=== PATIENT | male | born 1970 | race Two or more races ===

== ENCOUNTER 2021-11-10 08:08 | Outpatient (REF) | payer BC, SELFPAY ==
[2021-11-10 08:17] LABS: MANUAL DIFF FLAG NO
[2021-11-10 08:59] LABS: Basophils Percent Auto 1.1 % (0-2); Eosinophils Absolute Auto 0.1 X10*3/uL (0.0-0.4); Eosinophils Percent Auto 3.3 % (0-4); Hematocrit 44.2 % (42.0-52.0); Hemoglobin 15.3 g/dl (14.0-18.0); Imm Gran Abs Auto 0.01 X10*3/uL (0.00-0.03); Imm Gran Pct Auto 0.3 % (0.0-0.4); Lymphocytes Percent Auto 28.4 % (20-40); Mean Corpuscular HGB Conc 34.6 g/dl (31.0-36.0); Mean Corpuscular Hemoglobin 30.4 pg (27.0-33.0); Mean Corpuscular Volume 87.9 fL (80.0-98.0); Mean Platelet Volume 9.4 fL (9.4-12.4); Monocytes Absolute Auto 0.4 X10*3/uL (0.1-1.2); Monocytes Percent Auto 10.7 % (2-11); Neutrophils Absolute Auto 2.1 x10*3/uL (2.0-8.3); Neutrophils Percent Auto 56.2 % (45-73); Platelet Count 204 X10*3/uL (160-400); Red Blood Count 5.03 X10*6/uL (4.60-5.80); Red Cell Distribution Width 11.8 % (11.0-16.0); White Blood Count 3.7 X10*3/uL (4.8-10.8)
[2021-11-10 09:30] LABS: Alanine Aminotransferase 47 U/L (0-40); Albumin Level 4.5 g/dL (3.5-5.0); Alkaline Phosphatase 84 U/L (39-117); Anion Gap 15 (12-20); Aspartate Amino Transferase 28 U/L (5-37); Bilirubin Total 0.4 mg/dL (0.0-1.0); Blood Urea Nitrogen 22 mg/dL (9-16); Carbon Dioxide 24 mmol/L (22-29); Chloride 107 mmol/L (96-108); Cholesterol 196 mg/dL; Estimated Glomerular Filt Rate > 60; Glucose Fasting 101 mg/dL (60-99); HDL Cholesterol 38 mg/dL; LDL Cholesterol Calculated 136 mg/dl; Potassium 4.3 mmol/L (3.3-5.1); Sodium 142 mmol/L (135-145); Total Protein 7.6 g/dL (6.5-8.0); Triglycerides 114 mg/dL
[2021-11-10 09:52] LABS: PSA,Total (Free>4and<10) 0.44 ng/mL (0.00-4.00); Thyroid Stimulating Hormone 3.07 uIU/mL (0.32-4.0); Vitamin D 25-OH Total 23.5 ng/mL (>30)
== END 2021-11-10 08:09 | disposition home or self-care (01) ==
LOC: HO.LAB 08:08
PROVIDERS: PCP Internal Medicine; Visit Provider Internal Medicine
DX: Z00.00 Encounter for general adult medical examination without abnormal findings (principal); Z12.5 Encounter for screening for malignant neoplasm of prostate; E78.5 Hyperlipidemia, unspecified; E66.9 Obesity, unspecified; E55.9 Vitamin D deficiency, unspecified
CPT/HCPCS: 36415; 80053; 80061; 82306; 84153; 84443; 85025

== ENCOUNTER 2022-02-02 07:37 | Outpatient (REF) | payer BC, SELFPAY ==
[2022-02-02 07:50] LABS: MANUAL DIFF FLAG NO
[2022-02-02 08:13] LABS: Basophils Percent Auto 0.8 % (0-2); Eosinophils Absolute Auto 0.1 X10*3/uL (0.0-0.4); Hematocrit 45.2 % (42.0-52.0); Hemoglobin 15.3 g/dl (14.0-18.0); Imm Gran Abs Auto 0.01 X10*3/uL (0.00-0.03); Imm Gran Pct Auto 0.3 % (0.0-0.4); Lymphocytes Percent Auto 25.1 % (20-40); Mean Corpuscular HGB Conc 33.8 g/dl (31.0-36.0); Mean Corpuscular Hemoglobin 30.5 pg (27.0-33.0); Mean Platelet Volume 9.5 fL (9.4-12.4); Monocytes Absolute Auto 0.3 X10*3/uL (0.1-1.2); Neutrophils Absolute Auto 2.5 x10*3/uL (2.0-8.3); Neutrophils Percent Auto 63.8 % (45-73); Platelet Count 187 X10*3/uL (160-400); Red Blood Count 5.02 X10*6/uL (4.60-5.80); Red Cell Distribution Width 11.7 % (11.0-16.0)
[2022-02-02 08:57] LABS: Alanine Aminotransferase 40 U/L (0-40); Albumin Level 4.4 g/dL (3.5-5.0); Alkaline Phosphatase 80 U/L (39-117); Aspartate Amino Transferase 22 U/L (5-37); Bilirubin Direct 0.2 mg/dL (0.0-0.5); Bilirubin Total 0.8 mg/dL (0.0-1.0); Total Protein 7.3 g/dL (6.5-8.0)
== END 2022-02-02 07:38 | disposition home or self-care (01) ==
LOC: HO.LAB 07:37
PROVIDERS: PCP Internal Medicine; Visit Provider Internal Medicine
DX: D72.819 Decreased white blood cell count, unspecified (principal); R74.01 Elevation of levels of liver transaminase levels
CPT/HCPCS: 36415; 80076; 85025

== ENCOUNTER 2022-12-08 08:27 | Outpatient (AMB) | payer BC, SELFPAY ==
[2022-12-08 08:32] VITALS: BP 120/70; PULSE 66; O2SAT 97; BMI 29.9
--- NOTE | 2022-12-08 08:32 | A.OFFPC_ITS ---
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 Accompanied by: Spouse Allergies oxycodone [From Percocet] Adverse Reaction (Intermediate, Verified 12/08/22 08:44) Itching Medication List - Last Reconciled 12/08/22 by Jacinda Cortes MD cholecalciferol (vitamin D3) 25 mcg PO DAILY 90 days Tobacco use date assessed: 12/08/22 Dental Screening Dental Screen Date: 12/08/22 Did you have a dental visit in the last 12 months?: Yes Did you have a dental problem in the last 6 months where you did not have access to dental care?: No Was dental information given to patient?: Patient has dentist HPI HPI Comments History of Present Illness Details This is a 52-year-old male with mild major depression that comes for his physical exam. Depression has been in remission. Colonoscopy still pending. No chest pain or shortness of breath. Complains of insomnia and tried trazodone with no success. I will prescribe amitriptyline. He also has hemorrhoids and constipation. Has occasional blood in the stools. He is accompanied by female partner. [facility] Surgical History History of hernia surgery Family History Father No problems noted. Mother No problems noted. Social History Housing: House Alcohol intake: never Patient Tobacco Use Status: Never used Tobacco e-Cigarette/Vaping Use: Never Used Second Hand Smoke Exposure: No service: No Current occupational status: employed Current occupational exposures/hazards: No Cognitive needs: No Hearing needs: No Vision needs: Yes Questionnaire Thrive Questionnaire Date Thrive assessed: 11/10/21 MOLLY-7 AMB Questionnaire MOLLY-7 Date MOLLY - 7 assessed: 11/10/21 Source: Developed by Drs. Jose Cai, Gayle B.W. Elier Cosme and colleagues, with an educational osmani from [employer]. Review of Systems Const All systems reviewed & are unremarkable except as noted in HPI and below Eyes Reports no additional complaints, Denies change in vision and Denies other visual disturbances Card Denies chest pain at rest, Denies chest pain with activity, Denies edema, Denies irregular heart rhythm, Denies claudication, Denies dyspnea, Denies dyspnea on exertion, Denies orthopnea, Denies paroxysmal nocturnal dyspnea and Denies slow heart rate Resp Denies cough, Denies dyspnea and Denies dyspnea on exertion GI Denies abdominal pain, Denies change in bowel habits, Denies excessive flatus, Denies nausea and Denies vomiting Denies urinary hesitancy, Denies urinary incontinence and Denies urinary urgency Musc Denies abnormal gait, Denies atrophy, Denies deformity and Denies limited range of motion Skin/Breast Denies bleeding lesions, Denies changing lesions and Denies rash Neuro Denies abnormal gait and Denies lack of coordination Physical exam (Primary Care) Vital Signs: Last Vital Signs Pulse 66 12/08/22 08:32 BP 120/70 12/08/22 08:32 Pulse Ox 97 12/08/22 08:32 Oxygen Delivery Method Room Air 12/08/22 08:32 BMI result Body Mass Index 29.9 Tobacco/Smoking Status: Tobacco use Status Tobacco use date assessed 12/08/22 12/08/22 08:35 Patient Tobacco Use Status Never used Tobacco 12/08/22 08:35 e-Cigarette/Vaping Use Never Used 12/08/22 08:35 Thrive Assessment: Date of Thrive Assessment Date Thrive assessed 11/10/21 12/08/22 08:35 Const Orientation/consciousness: patient oriented x3 HENMT Head: Yes normal to inspection, Yes normocephalic and Yes atraumatic Ears: external ears normal Eyes General: appearance normal, both eyes and all related structures Eyelids: Yes eyelids normal Conjunctivae: conjunctivae normal Neck Neck: Yes normal visual inspection and Yes supple Resp Effort & Inspection: normal respiratory effort Auscultation: clear to auscultation bilaterally Cardio Jugular venous distension: no JVD Rate: regular rate Rhythm: regular rhythm Heart sounds: S1 normal heart sound present and S2 normal heart sound present GI Inspection: Yes normal to inspection Palpation (GI): Soft to palpation and nontender Auscultation: normal bowel sounds Skin General skin exam: no rashes or lesions noted Neuro General: patient oriented x3 and no focal motor deficits Extrem General: Yes full ROM Psych Appearance: grossly normal Office Procedures Flu Questionnaire Does the patient have a severe egg allergy?: No Immunizations flu vacc [id number] 6mos up(PF) 60 mcg(15 mcgx4)/0.5 mL IM syringe Performing Provider: Jacinda Cortes MD [facility] Documented (not given) by: SIRI Draper on 12/08/22 08:36 Reason Not Given: Patient Refused Assessment and Plan Assessment & Plan (1) Physical exam: Code(s): Z00.00 - Encounter for general adult medical examination without abnormal findings Plan: Repeat in a year (2) Mild major depression: Code(s): F32.0 - Major depressive disorder, single episode, mild Plan: In remission Orders: Orders Influenza [id number] Immunization Today Z23 - Encounter for immunization Lipid Panel Today E78.5 - Hyperlipidemia, unspecified, Z00.00 - Encounter for general adult medical examination without abnormal findings Complete Blood Count Auto Diff Today D72.819 - Decreased white blood cell count, unspecified Comprehensive [place]. Panel Fast Today Z00.00 - Encounter for general adult medical examination without abnormal findings Vitamin D 25-OH Total Today E55.9 - Vitamin D deficiency, unspecified Medications: New amitriptyline 10 mg PO BEDTIME 90 days 90 tabs 1RF docusate sodium (Colace) 100 mg PO DAILY 90 days PRN 90 caps 1RF constipation Coding Level of Care Code Est Pt Prev Care 40-64y(17050) Diagnoses Physical exam Z00.00 Mild major depression F32.0 Time Spent (min) 32
== END 2022-12-08 08:56 | disposition home or self-care (01) ==
LOC: HO.HMGH 08:27
PROVIDERS: PCP Internal Medicine; Visit Provider Internal Medicine
DX: Z00.00 Encounter for general adult medical examination without abnormal findings (principal); F32.0 Major depressive disorder, single episode, mild
CPT/HCPCS: 99396

== ENCOUNTER 2022-12-24 08:38 | Outpatient (REF) | payer BC, SELFPAY ==
[2022-12-24 08:49] LABS: MANUAL DIFF FLAG NO
[2022-12-24 09:06] LABS: Basophils Percent Auto 0.7 % (0-2); Eosinophils Absolute Auto 0.1 X10*3/uL (0.0-0.4); Eosinophils Percent Auto 3.1 % (0-4); Hematocrit 43.4 % (42.0-52.0); Imm Gran Abs Auto 0.01 X10*3/uL (0.00-0.03); Imm Gran Pct Auto 0.3 % (0.0-0.4); Lymphocytes Absolute Auto 0.8 X10*3/uL (1.2-4.9); Lymphocytes Percent Auto 26.9 % (20-40); Mean Corpuscular HGB Conc 34.6 g/dl (31.0-36.0); Mean Corpuscular Hemoglobin 31.1 pg (27.0-33.0); Mean Platelet Volume 9.7 fL (9.4-12.4); Monocytes Absolute Auto 0.3 X10*3/uL (0.1-1.2); Monocytes Percent Auto 8.7 % (2-11); Neutrophils Absolute Auto 1.7 x10*3/uL (2.0-8.3); Neutrophils Percent Auto 60.3 % (45-73); Platelet Count 191 X10*3/uL (160-400); Red Blood Count 4.82 X10*6/uL (4.60-5.80); Red Cell Distribution Width 11.9 % (11.0-16.0); White Blood Count 2.9 X10*3/uL (4.8-10.8)
[2022-12-24 09:51] LABS: Alanine Aminotransferase 44 U/L (0-40); Albumin Level 4.5 g/dL (3.5-5.0); Alkaline Phosphatase 73 U/L (39-117); Anion Gap 15 (12-20); Aspartate Amino Transferase 26 U/L (5-37); Bilirubin Total 0.8 mg/dL (0.0-1.0); Blood Urea Nitrogen 18 mg/dL (9-16); Calcium 9.6 mg/dL (8.4-10.2); Carbon Dioxide 23 mmol/L (22-29); Chloride 105 mmol/L (96-108); Cholesterol 234 mg/dL (<200); Estimated Glomerular Filt Rate > 60; Glucose Fasting 88 mg/dL (60-99); HDL Cholesterol 42 mg/dL (>40); LDL Cholesterol Calculated 175 mg/dL (<100); Potassium 4.1 mmol/L (3.3-5.1); Sodium 139 mmol/L (135-145); Total Protein 7.7 g/dL (6.5-8.0); Triglycerides 88 mg/dL (<150)
[2022-12-24 10:01] LABS: Vitamin D 25-OH Total 28.3 ng/mL (>30)
== END 2022-12-24 08:39 | disposition home or self-care (01) ==
LOC: HO.LAB 08:38
PROVIDERS: PCP Internal Medicine; Visit Provider Internal Medicine
DX: Z00.00 Encounter for general adult medical examination without abnormal findings (principal); D72.819 Decreased white blood cell count, unspecified; E78.5 Hyperlipidemia, unspecified; E55.9 Vitamin D deficiency, unspecified
CPT/HCPCS: 36415; 80053; 80061; 82306; 85025

== ENCOUNTER 2023-01-20 10:19 | Outpatient (AMB) | payer BC, SELFPAY ==
[2023-01-20 10:25] VITALS: BP 124/75; PULSE 62; BMI 28.3
--- NOTE | 2023-01-20 10:25 | MHC.OFFVIS ---
Intake Vital Signs 01/20/23 10:25 Height 5 ft 6 in Weight 175 lb 7.807 oz BMI 28.3 BP 124/75 Blood Pressure Location Lt brachial Position Sitting Pulse 62 Pulse Source Pulse Oximeter Intake Visit Reasons: rectal bleeding Intake Note: Pt presents to the office today for rectal bleeding. Pt states he sees bright red blood when you goes to the bathroom. Pt states he only goes to the bathroom about once a week. Pt denies N/V/D or stomach upsets. Allergies oxycodone [From Percocet] Adverse Reaction (Intermediate, Verified 01/20/23 10:27) Itching HPI rectal bleeding HPI Details 52 year old? male with past medical history of leukopenia, insomnia, depression is here today for initial consultation.? Patient was booked for open access colonoscopy and will have the procedure in February, however ask to be seen due to severe constipation and occasional blood in his stools. Patient reports that sometimes he will not have a bowel movement for 1 week. Patient states that he changed his diet is trying to lose weight is doing he told diet and since then he became even more constipated.? ? Denies any personal or family history of gastrointestinal disease, colon polyps, or cancer.? Denies history of difficulty with sedation or anesthesia in the past.? Negative for history of sleep apnea.? Denies any history of cardiac, renal, pulmonary, or hepatic disease.?? No history of infectious? diseases like hepatitis A, B, C, HIV or tuberculosis.? Patient is not on any anticoagulation therapy. [facility] Surgical History History of hernia surgery Family History Father No problems noted. Mother No problems noted. Social History Housing: House Alcohol intake: never Patient Tobacco Use Status: Never used Tobacco e-Cigarette/Vaping Use: Never Used Second Hand Smoke Exposure: No service: No Current occupational status: employed Current occupational exposures/hazards: No Cognitive needs: No Hearing needs: No Vision needs: Yes Review of Systems Const Denies weight gain and Denies weight loss ENT Reports no additional complaints, Denies dysphagia and Denies odynophagia Card Reports no additional complaints Resp Reports no additional complaints GI Denies abdominal pain, Denies belching, Denies melena, Reports bloating, Reports hematochezia, Denies change in bowel habits, Reports constipation, Denies dysphagia, Denies excessive flatus, Denies dyspepsia, Denies heartburn, Denies diarrhea, Denies loose stools, Denies nausea, Denies odynophagia and Denies vomiting Reports no additional complaints Musc Reports no additional complaints Neuro Reports no additional complaints Psych Reports no additional complaints Endo Reports no additional complaints Physical Exam Vital Signs: Last Vital Signs Pulse 62 01/20/23 10:25 BP 124/75 01/20/23 10:25 BMI result Body Mass Index 28.3 Const General: healthy appearing, no acute distress and well developed Nutritional Appearance: well nourished Orientation/consciousness: patient oriented x3 HEENT Head: Yes normal to inspection, Yes normocephalic and Yes atraumatic Face and sinus: Yes normal facial exam Mouth: Normal oral and palatal mucosa present Throat: Yes posterior oropharynx normal, Yes tonsils normal and Yes uvula midline Eyes General: appearance normal, both eyes and all related structures Neck Neck: Yes normal visual inspection, Yes full ROM and Yes trachea midline Thyroid: Thyroid normal Resp Effort & Inspection: normal respiratory effort, able to speak in complete sentences, no tracheal deviation and symmetric chest movement Auscultation: clear to auscultation bilaterally Cardio Rate: regular rate GI Inspection: Yes normal to inspection, No distended and Yes obesity Palpation (GI): Soft to palpation, not firm, nontender and No hepatosplenomegaly present Auscultation: normal bowel sounds General: Yes no CVA tenderness Back/Spine/Pelvis Back: no CVA tenderness Skin General skin exam: elasticity normal, turgor normal and dry skin Neuro General: patient oriented x3 Psych Appearance: grossly normal Mental Status: mental status grossly normal Affect: normal affect Assessment & Plan Assessment & Plan (1) Constipation: Code(s): K59.00 - Constipation, unspecified Qualifiers: Constipation type: chronic idiopathic constipation Qualified Code(s): K59.04 - Chronic idiopathic constipation (2) Rectal bleed: Code(s): K62.5 - Hemorrhage of anus and rectum Plan Patient was encouraged to increase fluid intake and activity to promote better bowel motility. Eat more vegetables. Patient can start taking Dulcolax tablets every evening. Patient was encouraged to stop straining. May use Proctosol to help with hemorrhoids. Patient also was encouraged to do Sitz baths with Epsom salts. I will see patient after the procedure, sooner on as needed basis. Patient is agreeable to this plan and verbalizes understanding of instructions. He was given the opportunity to ask questions and all questions answered. Thank you for allowing me to participate in his care Medications: New bisacodyl (Dulcolax (bisacodyl)) 10 mg (2 x 5 mg) PO BEDTIME 180 tabs 4RF hydrocortisone 2.5% (Proctosol HC) 1 appl GA BID-QID PRN 30 grams 2RF hemorrhoids K64.9 - Unspecified hemorrhoids Coding Level of Care Code New Pt Level 3 (63059) Diagnoses Chronic idiopathic constipation K59.04 Constipation type: chronic idiopathic constipation Rectal bleed K62.5 Time Spent (min) 40 Comment 30 minutes spent with patient and additional 10 minutes spent reviewing his records
== END 2023-01-20 13:05 | disposition home or self-care (01) ==
PROVIDERS: PCP Internal Medicine; Visit Provider Nurse Practitioner Family
DX: K59.04 Chronic idiopathic constipation (principal); K62.5 Hemorrhage of anus and rectum
CPT/HCPCS: 99203

== ENCOUNTER → 2023-01-20 10:19 | Outpatient (BNVA) | payer BC, SELFPAY | PROVIDERS: PCP Internal Medicine; Visit Provider Nurse Practitioner Family ==

== ENCOUNTER → 2023-02-22 10:56 | Outpatient (BNV) | payer BC, SELFPAY | PROVIDERS: PCP Internal Medicine; Visit Provider Internal Medicine | DX: D72.819 Decreased white blood cell count, unspecified (principal) | CPT/HCPCS: 99204 ==

== ENCOUNTER 2023-03-08 07:10 | Day surgery (SDC) | payer BC, SELFPAY ==
[2023-03-06 13:31] VITALS: BMI 28.2
--- NOTE | 2023-03-07 12:08 | HO.ANESPROP2 ---
HPI - Anesthesia Eval Consult details Narrative: 52yo M for Colonoscopy PMFSH Active Problems Active Problems: All Active Problems (Updated 03/06/23 @ 13:28 by Sunita Hernandez RN) Chest pain (Acute) Dysphagia (Acute) Transaminasemia (Acute) Leukopenia (Chronic) Hypovitaminosis D (Acute) Insomnia (Acute) Mild major depression (Acute) Obesity (BMI 30-39.9) (Acute) Physical exam (Acute) Past Medical History Medical History Elevated cholesterol Leukopenia Depression Insomnia Dysphagia Family History Family History Father No problems noted. Mother No problems noted. Surgical History Surgical History History of hernia surgery Social History Social History (Updated 02/22/23 @ 11:12 by Patrica Simms MA) Household Members: Spouse and Children Housing: House Alcohol intake: never Patient Tobacco Use Status: Never used Tobacco e-Cigarette/Vaping Use: Never Used Second Hand Smoke Exposure: No Use of substances other than those prescribed or required for medical reasons: No Are you DNR?: No Advance Directives: No Advance Directives Information Provided: Yes service: No Current occupational status: employed Current occupational exposures/hazards: No Cognitive needs: No Hearing needs: No Vision needs: Yes Meds Allergies Allergy/AdvReac Type Severity Reaction Status Date / Time oxycodone [From Percocet] AdvReac Intermediate Itching Verified 03/08/23 07:30 Exam Height,Weight and Vital Signs: Height 5 ft 6 in Weight 79.379 kg Pertinent Lab Results Pertinent Lab Results: Laboratory Tests 12/24/22 02/22/23 02/22/23 08:48 11:42 11:42 WBC 4.0 L Hgb 15.1 Hct 43.4 Plt Count 205 Sodium 139 Potassium 4.1 Chloride 105 Carbon Dioxide 23 BUN 18 H Creatinine 0.93 Assessment and Plan Assessment Anesthesia Assessment: Chart Reviewed
[2023-03-08 07:32] VITALS: BMI 28.0
[2023-03-08 08:00] VITALS: BP 100/68; PULSE 63; RESP 16; TEMP 36.4; O2SAT 97
[2023-03-08] MEDS: Lactated Ringers 1,000 ML 100 ML IVCONT (08:03)
--- NOTE | 2023-03-08 08:26 | P.CONAN_ITS ---
[facility] Active Problems Active Problems: All Active Problems Chest pain (Acute) Dysphagia (Acute) Transaminasemia (Acute) Leukopenia (Chronic) Hypovitaminosis D (Acute) Insomnia (Acute) Mild major depression (Acute) Obesity (BMI 30-39.9) (Acute) Physical exam (Acute) Past Medical History Medical History Elevated cholesterol Leukopenia Depression Insomnia Dysphagia Family History Family History Father No problems noted. Mother No problems noted. Family history of problems with anesthesia: No Surgical History Surgical History History of hernia surgery History of Problems with Anesthesia: No Social History Social History (Updated 02/22/23 @ 11:12 by Patrica Simms MA) Household Members: Spouse and Children Housing: House Alcohol intake: never Patient Tobacco Use Status: Never used Tobacco e-Cigarette/Vaping Use: Never Used Second Hand Smoke Exposure: No Use of substances other than those prescribed or required for medical reasons: No Are you DNR?: No Advance Directives: No Advance Directives Information Provided: Yes service: No Current occupational status: employed Current occupational exposures/hazards: No Cognitive needs: No Hearing needs: No Vision needs: Yes Meds Allergies Allergy/AdvReac Type Severity Reaction Status Date / Time oxycodone [From Percocet] AdvReac Intermediate Itching Verified 03/08/23 07:30 Active Medications: Current Medications Lactated Ringer's (Lr) 1,000 mls @ 100 mls/hr IVCONT .Q10H MANDEEP Last Admin: 03/08/23 08:03 Dose: 100 mls/hr Exam Height,Weight and Vital Signs: Height 5 ft 6 in Weight 78.834 kg Last Vital Signs Temp 97.6 F 03/08/23 08:00 Pulse 63 03/08/23 08:00 Resp 16 03/08/23 08:00 BP 100/68 03/08/23 08:00 Pulse Ox 97 03/08/23 08:00 O2 Del Method Room Air 03/08/23 08:00 Airway Mallampati Class: II TM Dist: >3cm Neck ROM: Full Heart: rrr Lungs: cta Assessment and Plan Assessment Anesthesia Assessment: Anesthesia Plan Discussed and Chart Reviewed Final Anesthetic Review Family History of Problems with Anesthesia: No History of Problems with Anesthesia: No NPO: Yes ASA Class: II Final Preanesthetic Review: No Changes in Pt Med Stat, Meds/Allgs Chart Reviewed and Consent Obtained/Reviewed Patient Risk: Intermediate Procedure Risk: Intermediate Anesthetic Plan Anesthetic Plan: MAC: Disposition: Standard PACU
--- NOTE | 2023-03-08 08:31 | MHC.SHP ---
Pre-Procedural Eval Section A - 24 Hr Update-Section A only Date of Service: 03/08/23 Section B - Complete if H&P > 30 days Chief Complaint: screening Relevant Family History (Specify if Yes): No Relevant Social History: None Present Medications: see Short Stay Collaborative assessment Medical History: Significant History ( Elevated cholesterol Leukopenia Depression Insomnia Dysphagia) History of Previous Operations: Relevant previous surgery/procedure and date(s) (History of hernia surgery) Allergies: Allergies Allergy/AdvReac Type Severity Reaction Status Date / Time oxycodone [From Percocet] AdvReac Intermediate Itching Verified 03/08/23 07:30 Review of Systems Sugical H&P ROS: Negative: Constitution, Cardiovascular, Respiratory, Neurological, Psychiatric, Hem-Onc, Allergic/Immunologic, Gastrointestinal, Genitourinary, Musculoskeletal, Integumentary, Endocrine and Eyes/Ears/Nose/Throat Exam Surgical H&P Exam: Normal: HEENT, Normal: Heart, Normal: Lungs, Normal: Extremities, Normal: Abdomen, Normal: Skin and Normal: Neurological Plan Diagnosis/Plan: Unchanged I have reviewed the history and physical and performed a pertinent physical examination on my patient. No changes have occurred unless specified. Time Spent With Patient Time: Total time managing care of this patient today ____ minutes.
--- NOTE | 2023-03-08 08:58 | W.PM.OPN ---
Operative Note Operative Note Date of Service: 03/08/23 Narrative: Operative Information Procedure Description: Colonoscopy Indication: screening Anesthesia: MAC COLONOSCOPY Instrument: Olympus variable stiffness pediatric scope 190L Colonoscopy Monitoring: Vital signs and clinical assessment, continuous EKG monitoring, Pulse oximetry, Carbon Dioxide monitoring and blood pressure monitoring were done throughout the procedure. Colon withdrawal time was 14 minutes. Procedure: The patient was placed in the left lateral decubitis position and pre-procedure medications were administered. After a digital rectal examination of the ano-rectum, the video colonoscope was inserted into the rectum and advanced through the colon to the cecum/TI. The colonoscope was slowly withdrawn in a retrograde panoramic fashion and the colon mucosa was carefully examined including a retroflexed view of the rectum. Findings and interventions are described below. Procedure Difficulty: easy Findings: Terminal Ileum-normal, bx taken Cecum: erythema, and edema, micro-abscesses in cecum, bx taken, Ascending Colon: normal, random bx taken Transverse Colon -normal Descending Colon:normal Sigmoid Colon: normal Rectum: Retroflexion with small internal hemorrhoids, grade I Anorectum - normal Colon preparation: [place] Bowel Preparation Scale Right colon; 2 Transverse colon: 2 Left colon; 2 (0 = Unprepared colon segment with mucosa not seen due to solid stool that cannot be cleared. 1 = Portion of mucosa of the colon segment seen, but other areas of the colon segment not well seen due to staining, residual stool and/or opaque liquid. 2 = Minor amount of residual staining, small fragments of stool and/or opaque liquid, but mucosa of colon segment seen well. 3 = Entire mucosa of colon segment seen well with no residual staining, small fragments of stool or opaque liquid) Impression and Post Procedure Diagnosis: mild colitis internal hemorrhoids Plan: High fiber diet leaflet Avoid straining at stool, epsom salts and sitz bath, anusol supps or cream Repeat Colonoscopy in 10 years or earlier if clinically indicated check nsaid hx recheck sx, consider CTe to r/o crohns or other enteropathy Above findings were reviewed with the patient and relevant handouts were provided if indicated.
[2023-03-08 09:02] VITALS: BP 104/69; PULSE 74; RESP 16; TEMP 36.9; O2SAT 97
[2023-03-08 09:17] VITALS: BP 111/69; PULSE 62; RESP 18; TEMP 36.9; O2SAT 99
== END 2023-03-08 09:56 | disposition home or self-care (01) ==
PROVIDERS: PCP Internal Medicine; Visit Provider Internal Medicine Gastroenterology
PROC: 0DJD8ZZ Inspection of Lower Intestinal Tract, Via Natural or Artificial Opening Endoscopic (ICD-10-PCS; CPT 45378; principal; 2023-03-08 08:30)
DX: Z12.11 Encounter for screening for malignant neoplasm of colon (principal); K52.89 Other specified noninfective gastroenteritis and colitis; K64.0 First degree hemorrhoids; K59.04 Chronic idiopathic constipation; E78.00 Pure hypercholesterolemia, unspecified; D72.819 Decreased white blood cell count, unspecified; F32.A Depression, unspecified; R13.10 Dysphagia, unspecified; G47.00 Insomnia, unspecified; Z88.5 Allergy status to narcotic agent; Z98.890 Other specified postprocedural states
CPT/HCPCS: 45380; 88305; J2704

== ENCOUNTER → 2023-03-08 07:10 | Outpatient (BNV) | payer BC, SELFPAY | PROVIDERS: PCP Internal Medicine; Visit Provider Internal Medicine Gastroenterology | DX: Z12.11 Encounter for screening for malignant neoplasm of colon (principal); K52.9 Noninfective gastroenteritis and colitis, unspecified; K64.0 First degree hemorrhoids | CPT/HCPCS: 45380 ==

== ENCOUNTER 2023-06-13 08:04 | Outpatient (AMB) | payer BC, SELFPAY ==
--- NOTE | 2023-06-13 08:13 | A.OFFVIS_ITS ---
Vital Signs 06/13/23 08:16 Height 5 ft 6 in Weight 162 lb BMI 26.1 BP 119/64 Blood Pressure Location Lt brachial Position Sitting Pulse 71 Intake Visit Reasons: pt req appointment Intake Note: Patient follow up for constipation and Colonoscopy results Patient cc: constipation with bloody hemorrhoids, denies any other GI issues. Fleet Technician Required: Yes Accompanied by: Spouse Allergies oxycodone [From Percocet] Adverse Reaction (Intermediate, Verified 06/13/23 08:12) Itching HPI HPI pt req appointment: Details: LAST VISIT 01/20/2023 Constipation Rectal bleed Plan Patient was encouraged to increase fluid intake and activity to promote better bowel motility. Eat more vegetables. Patient can start taking Dulcolax tablets every evening. Patient was encouraged to stop straining. May use Proctosol to help with hemorrhoids. Patient also was encouraged to do Sitz baths with Epsom salts. I will see patient after the procedure, sooner on as needed basis. Patient is agreeable to this plan and verbalizes understanding of instructions. He was given the opportunity to ask questions and all questions answered. ? Thank you for allowing me to participate in his care Medications New bisacodyl (Dulcolax (bisacodyl)) 10 mg (2 x 5 mg) PO BEDTIME 180 tabs 4RF hydrocortisone 2.5% (Proctosol HC) 1 appl HI BID-QID PRN 30 grams 2RF hemorrhoids K64.9 COLONOSCOPY 03/08/2023 Findings: Terminal Ileum-normal, bx taken Cecum: erythema, and edema, micro-abscesses in cecum, bx taken, Ascending Colon: normal, random bx taken Transverse Colon -normal Descending Colon:normal Sigmoid Colon: normal Rectum: Retroflexion with small internal hemorrhoids, grade I Anorectum - normal Colon preparation: [place] Bowel Preparation Scale Right colon; 2 Transverse colon: 2 Left colon; 2 (0 = Unprepared colon segment with mucosa not seen due to solid stool that cannot be cleared. 1 = Portion of mucosa of the colon segment seen, but other areas of the colon segment not well seen due to staining, residual stool and/or opaque liquid. 2 = Minor amount of residual staining, small fragments of stool and/or opaque liquid, but mucosa of colon segment seen well. 3 = Entire mucosa of colon segment seen well with no residual staining, small fragments of stool or opaque liquid) Impression and Post Procedure Diagnosis: mild colitis internal hemorrhoids Plan: High fiber diet leaflet Avoid straining at stool, epsom salts and sitz bath, anusol supps or cream Repeat Colonoscopy in 10 years or earlier if clinically indicated check nsaid hx recheck sx, consider CTe to r/o crohns or other enteropathy PATHOLOGY RESULTS Diagnosis A. Colon, cecum, biopsy: Colonic mucosa with no specific change; no colitis, granulomas or dysplasia. B. Terminal ileum, biopsy: Ileal mucosa with no specific change; no ileitis, granulomas or dysplasia. C. Colon, right side, biopsy: Colonic mucosa with lymphoid aggregate and no specific change; no colitis, granulomas or dysplasia TODAY'S VISIT: Patient is here today for follow-up and to discuss colonoscopy results. No polyps found, however small inflammatory changes in cecum questioning colitis. Erythema found, however biopsy showed no colitis, no granulomas or dysplasia. Patient currently is not taking any NSAIDs. Patient denies any dyspepsia, dysphagia or odynophagia. Denies melena, unintentional weight loss. Patient reports that he is not moving his bowels well still is constipated. Occasional blood after bowel movements. Patient denies any dyspepsia, dysphagia or odynophagia. Patient reports that he was using Dulcolax and it was helpful. Currently he is using stool softeners. Ran out of his Dulcolax. Patient denies any other GI concerning symptoms. [facility] Medical History (Updated 05/11/23 @ 10:45 by Jacinda Cortes MD) Elevated cholesterol Leukopenia Depression Insomnia Dysphagia Surgical History History of hernia surgery Family History Father No problems noted. Mother No problems noted. Social History Household Members: Spouse and Children Housing: House Alcohol intake: never Patient Tobacco Use Status: Never used Tobacco e-Cigarette/Vaping Use: Never Used Second Hand Smoke Exposure: No service: No Current occupational status: employed Current occupational exposures/hazards: No Cognitive needs: No Hearing needs: No Vision needs: Yes Review of Systems Const Denies weight gain and Denies weight loss ENT Reports no additional complaints, Denies dysphagia and Denies odynophagia Card Reports no additional complaints Resp Reports no additional complaints GI Denies abdominal pain, Denies belching, Denies melena, Denies bloating, Reports constipation, Denies dysphagia, Denies excessive flatus, Denies dyspepsia, Denies heartburn, Denies diarrhea, Denies loose stools, Denies nausea, Denies odynophagia and Denies vomiting Reports no additional complaints Musc Reports no additional complaints Neuro Reports no additional complaints Psych Reports no additional complaints Endo Reports no additional complaints Physical Exam Vital Signs: Last Vital Signs Pulse 71 06/13/23 08:16 BP 119/64 06/13/23 08:16 BMI result Body Mass Index 26.1 Const General: healthy appearing, no acute distress and well developed Nutritional Appearance: well nourished Orientation/consciousness: patient oriented x3 Resp Effort & Inspection: normal respiratory effort, able to speak in complete sentences, no tracheal deviation and symmetric chest movement Auscultation: clear to auscultation bilaterally Cardio Rate: regular rate GI Inspection: Yes normal to inspection, No distended and Yes obesity Palpation (GI): Soft to palpation, not firm, nontender and No hepatosplenomegaly present Auscultation: normal bowel sounds General: Yes no CVA tenderness Back/Spine/Pelvis Back: no CVA tenderness Skin General skin exam: elasticity normal, turgor normal and dry skin Neuro General: patient oriented x3 Psych Appearance: grossly normal Mental Status: mental status grossly normal Assessment & Plan Assessment & Plan (1) Constipation: Code(s): K59.00 - Constipation, unspecified Qualifiers: Constipation type: chronic idiopathic constipation Qualified Code(s): K59.04 - Chronic idiopathic constipation (2) Rectal bleed: Code(s): K62.5 - Hemorrhage of anus and rectum (3) Status post colonoscopy: Code(s): Z98.890 - Other specified postprocedural states Plan Polyps found colonoscopy will need to be repeated in 10 years, sooner if clinically necessary. No colitis found on biopsy of cecum, however recommendation was made for patient to have CT enterography. Patient can c ontinue taking Dulcolax tablets new script sent. Continue stool softeners. Continue Proctosol on as needed basis. Patient will follow-up in our office as needed unless CT enterography will show possible IBD. He is agreeable to this plan and verbalizes understanding of instructions. He was given the opportunity to ask questions and all questions answered. Thank you for allowing me to participate in his care Orders: Orders CT enterography Today K62.5 - Hemorrhage of anus and rectum, R10.9 - Unspecified abdominal pain Creatinine Today R10.11 - Right upper quadrant pain Blood Urea Nitrogen Today R10.11 - Right upper quadrant pain Medications: New bisacodyl (Dulcolax (bisacodyl)) 10 mg (2 x 5 mg) PO BEDTIME 180 tabs 4RF Changed From docusate sodium (Colace) 100 mg PO DAILY 90 days PRN 90 caps 1RF constipation To docusate sodium (Colace) 100 mg PO DAILY 90 days 90 caps 3RF constipation Coding Level of Care Code Est Pt Level 4 (63948) Diagnoses Chronic idiopathic constipation K59.04 Constipation type: chronic idiopathic constipation Rectal bleed K62.5 Status post colonoscopy Z98.890 Time Spent (min) 35 Comment 20 minutes spent with patient and additional 15 minutes spent reviewing his records
[2023-06-13 08:16] VITALS: BP 119/64; PULSE 71; BMI 26.1
== END 2023-06-13 09:23 | disposition home or self-care (01) ==
PROVIDERS: PCP Internal Medicine; Visit Provider Nurse Practitioner Family
DX: K59.04 Chronic idiopathic constipation (principal); K62.5 Hemorrhage of anus and rectum; Z98.890 Other specified postprocedural states
CPT/HCPCS: 99214

== ENCOUNTER → 2023-06-13 08:04 | Outpatient (BNVA) | payer BC, SELFPAY | PROVIDERS: PCP Internal Medicine; Visit Provider Nurse Practitioner Family ==

== ENCOUNTER 2023-12-13 07:29 | Outpatient (AMB) | payer BC, SELFPAY ==
--- NOTE | 2023-12-13 07:40 | A.OFFPC_ITS ---
Vital Signs 12/13/23 07:41 Height 5 ft 6 in Weight 189 lb BMI 30.5 BP 120/70 Blood Pressure Location Lt brachial Position Sitting Intake Visit Reasons: Annual PE Intake Note: Patient here for an Annual Physical Exam Flight Inspector Required: No Accompanied by: Self / Same As Patient Allergies oxycodone [From Percocet] Adverse Reaction (Intermediate, Verified 12/13/23 07:57) Itching Medication List - Last Reconciled 12/13/23 by Jacinda Cortes MD cholecalciferol (vitamin D3) 25 mcg PO DAILY 90 days Tobacco use date assessed: 12/13/23 Dental Screening Dental Screen Date: 12/13/23 Did you have a dental visit in the last 12 months?: No Did you have a dental problem in the last 6 months where you did not have access to dental care?: No Was dental information given to patient?: Patient has dentist HPI HPI Comments History of Present Illness Details This is a 53-year-old male that comes for his physical exam. Colonoscopy done 2023 was normal and next colonoscopy should be 20 30. He declines flu vaccine. He complains of heartburn that has been present occasionally for a couple of years but now has been more aggravated and I will prescribe omeprazole as needed. No chest pain or shortness on breath. He does have mild major depression that has improved with relaxation techniques and does not need any treatment including medications or counseling at the moment. [facility] Medical History (Updated 12/13/23 @ 08:03 by Jacinda Cortes MD) Elevated cholesterol Leukopenia Depression Insomnia Dysphagia Surgical History History of hernia surgery Family History Father No problems noted. Mother No problems noted. Social History Household Members: Spouse and Children Housing: House Alcohol intake: never Patient Tobacco Use Status: Never used Tobacco e-Cigarette/Vaping Use: Never Used Second Hand Smoke Exposure: No service: No Current occupational status: employed Current occupational exposures/hazards: No Cognitive needs: No Hearing needs: No Vision needs: Yes Questionnaire PHQ-9 Over the last 2 weeks, how often have you been bothered by any of the following problems? 1. Little interest or pleasure in doing things: several days 2. Feeling down, depressed, or hopeless: not at all 3. Trouble falling or staying asleep, or sleeping too much: several days 4. Feeling tired or having little energy: several days 5. Poor appetite or overeating: several days 6. Feeling bad about yourself - or that you are a failure or have let yourself or your family down: not at all 7. Trouble concentrating on things, such as reading the newspaper or watching television: not at all 8. Moving or speaking so slowly that other people could have noticed. Or the opposite - being so fidgety or restless that you have been moving around a lot more than usual: not at all 9. Thoughts that you would be better off or of hurting yourself in some way: not at all Total score: 4 Depression Screening Interpretation: Positive Depression Screening Follow-up: Existing condition, Follow-up Visit Requested and Declines treatment Depression Screening Done: Yes 84216 - PHQ-9 Billing: Yes Source: Developed by Drs. Jose Cai, Gayle Cosme, Elier Johnson and colleagues, with an educational osmani from [employer]. Thrive Questionnaire Date Thrive assessed: 12/09/23 I am a: Patient What is your living situation today?: I have a steady place to live Within the past 12 months, did the food you bought not last and you didn't have the money to get more?: Never true Within the past 12 months, did you worry whether your food would run out before you got money to buy more?: Never true Do you have trouble paying for medicines?: No Do you have trouble getting transportation to medical appointments?: No Do you have trouble paying your heating and electricity bill?: No Do you have trouble taking care of your child, family member or friend?: No Do you have trouble with day-to-day activities such as bathing, preparing meals, shopping, managing finances, etc.?: No Are you currently unemployed and looking for a job?: No Are you interested in more education?: No Please select the resources that you would like help with: None Currently or been in a relationship where the following occur: No concerns reported THRIVE Score: 0 AUDIT C Alcohol Use Questionnaire (AUDIT-C) 1. How often do you have a drink containing alcohol?: Never Total Score: 0 Score Reviewed/Action Taken: No MOLLY-7 AMB Questionnaire MOLLY-7 Date MOLLY - 7 assessed: 12/13/23 Feeling nervous, anxious, or on edge: 0 = Not at all Not being able to stop or control worryin = Not at all Worrying too much about different things: 0 = Not at all Trouble relaxin = Not at all Being so restless that it is hard to sit still: 0 = Not at all Becoming easily annoyed or irritable: 0 = Not at all Feeling afraid as if something awful might happen: 0 = Not at all Total MOLLY-7 score (0-4 normal; 5-9 mild; 10-14 moderate; 15-21 severe): 0 Source: Developed by Drs. Jose Cai, Gayle Cosme, Elier Johnson and colleagues, with an educational osmani from [employer]. MOLLY-7 Assessment Billing MOLLY-7 Assessment Tool: MOLLY-7 Assessment 22700 Review of Systems Const All systems reviewed & are unremarkable except as noted in HPI and below Eyes Reports no additional complaints, Denies change in vision and Denies other visual disturbances Card Denies chest pain at rest, Denies chest pain with activity, Denies edema, Denies irregular heart rhythm, Denies claudication, Denies dyspnea, Denies dyspnea on exertion, Denies orthopnea, Denies paroxysmal nocturnal dyspnea and Denies slow heart rate Resp Denies cough, Denies dyspnea and Denies dyspnea on exertion GI Denies abdominal pain, Denies change in bowel habits, Denies excessive flatus, Denies nausea and Denies vomiting Physical exam (Primary Care) Vital Signs: Last Vital Signs BP 120/70 12/13/23 07:41 BMI result Body Mass Index 30.5 BMI Assessment/Plan discussion: High BMI High, discussed plan: lifestyle, weight reduction, dietary and physical activity Tobacco/Smoking Status: Tobacco use Status Tobacco use date assessed 12/13/23 12/13/23 07:57 Patient Tobacco Use Status Never used Tobacco 12/13/23 07:45 e-Cigarette/Vaping Use Never Used 12/13/23 07:45 PHQ-9: PHQ-9 Score PHQ-9: Total score 4 12/13/23 07:45 Depression Screening Interpretation: Positive Depression Screening Follow-up: Existing condition, Follow-up Visit Requested and Declines treatment Thrive Assessment: Date of Thrive Assessment Date Thrive assessed 12/09/23 12/13/23 07:45 Currently or been in a relationship where the following occur: No concerns reported HENNH Head: Yes normal to inspection, Yes normocephalic and Yes atraumatic Ears: external ears normal Eyes General: appearance normal, both eyes and all related structures Eyelids: Yes eyelids normal Conjunctivae: conjunctivae normal Neck Neck: Yes normal visual inspection and Yes supple Resp Effort & Inspection: normal respiratory effort Auscultation: clear to auscultation bilaterally Cardio Jugular venous distension: no JVD Rate: regular rate Rhythm: regular rhythm Heart sounds: S1 normal heart sound present and S2 normal heart sound present GI Inspection: Yes normal to inspection Palpation (GI): Soft to palpation and nontender Auscultation: normal bowel sounds Skin General skin exam: no rashes or lesions noted Neuro General: no focal motor deficits Extrem General: Yes full ROM Psych Appearance: grossly normal Office Procedures Flu Questionnaire Does the patient have a severe egg allergy?: No Immunizations Fluarix Triv [id number] (PF) 45 mcg (15 mcg x 3)/0.5 mL IM syringe Performing Provider: Jacinda Cortes MD [facility] Documented (not given) by: SIRI Draper on 12/13/23 08:02 Reason Not Given: Patient Refused Coding Level of Care Code Est Pt Level 3 (10294) Est Pt Prev Care 40-64y(84241) Diagnoses Physical exam Z00.00 Mild major depression F32.0 Chronic GERD K21.9 Additional Codes PHQ-9 - 06320 - PHQ-9 Billing: Yes ([id number]) MOLLY-7 Assessment Billing - MOLLY-7 Assessment Tool: MOLLY-7 Assessment 44810 ([id number]) Time Spent (min) 33 Assessment & Plan Assessment & Plan (1) Physical exam: Code(s): Z00.00 - Encounter for general adult medical examination without abnormal findings Category: Medical Plan: Repeat in a year. (2) Mild major depression: Code(s): F32.0 - Major depressive disorder, single episode, mild Category: Medical Plan: Continue relaxation techniques. No need for medication or counseling at the moment. (3) Chronic GERD: Code(s): K21.9 - Gastro-esophageal reflux disease without esophagitis Category: Medical Plan: Start PPIs as needed. Orders: Orders Influenza [id number] Immunization Today Z23 - Encounter for immunization Medications: New omeprazole 20 mg PO DAILY 90 days PRN 90 caps 0RF heartburn K21.9 - Gastro- esophageal reflux disease without esophagitis
[2023-12-13 07:41] VITALS: BP 120/70; BMI 30.5
== END 2023-12-13 08:08 | disposition home or self-care (01) ==
LOC: HO.HMCH 07:30
PROVIDERS: PCP Internal Medicine; Visit Provider Internal Medicine
DX: Z00.00 Encounter for general adult medical examination without abnormal findings (principal); F32.0 Major depressive disorder, single episode, mild; K21.9 Gastro-esophageal reflux disease without esophagitis

== ENCOUNTER → 2023-12-13 07:29 | Outpatient (BNVA) | payer BC, SELFPAY | PROVIDERS: PCP Internal Medicine; Visit Provider Internal Medicine | DX: Z00.00 Encounter for general adult medical examination without abnormal findings (principal); F32.0 Major depressive disorder, single episode, mild; K21.9 Gastro-esophageal reflux disease without esophagitis | CPT/HCPCS: 96127 ==

== ENCOUNTER 2023-12-23 08:24 | Outpatient (REF) | payer BC, SELFPAY ==
[2023-12-23 11:17] LABS: Alanine Aminotransferase 54 U/L (0-40); Albumin Level 4.4 g/dL (3.5-5.0); Alkaline Phosphatase 72 U/L (39-117); Anion Gap 11 (12-20); Aspartate Amino Transferase 27 U/L (5-37); Bilirubin Total 0.5 mg/dL (0.0-1.0); Blood Urea Nitrogen 19 mg/dL (9-16); Carbon Dioxide 28 mmol/L (22-29); Chloride 107 mmol/L (96-108); Cholesterol 236 mg/dL (<200); Estimated Glomerular Filt Rate > 60; Glucose Fasting 98 mg/dL (60-99); HDL Cholesterol 44 mg/dL (>40); LDL Cholesterol Calculated 167 mg/dL (<100); Potassium 4.3 mmol/L (3.3-5.1); Sodium 142 mmol/L (135-145); Total Protein 7.6 g/dL (6.5-8.0); Triglycerides 128 mg/dL (<150)
== END 2023-12-23 08:25 | disposition home or self-care (01) ==
LOC: HO.LAB 08:24
PROVIDERS: Nurse Practitioner Family; PCP Internal Medicine; Visit Provider Internal Medicine
DX: Z00.00 Encounter for general adult medical examination without abnormal findings (principal); E78.5 Hyperlipidemia, unspecified
CPT/HCPCS: 36415; 80053; 80061

== ENCOUNTER 2024-08-28 01:34 | Emergency (ER) | payer BC, SELFPAY ==
[2024-08-28 01:36] VITALS: BP 118/80; PULSE 58; RESP 14; TEMP 36.6; O2SAT 98; BMI 30.6
--- OUTSIDE RECORDS SUMMARY | 2024-08-28 02:44 | XMS_ITS ---
Author Name [facility] Organization Unknown Care Team Organization Name Specialty Phone Email Start Date End Da te [facility] 12/14/2021
--- NOTE | 2024-08-28 03:36 | ED.EAR ---
HPI - Ear Problem General Chief complaint: Ear Problems Stated complaint: ear pain Time Seen by Provider: 08/28/24 03:05 Source: patient Mode of arrival: ambulatory Limitations: no limitations History of Present Illness ED Provider: Jackson GRACE HPI Narrative: The patient is a 53-year-old male presenting to the ED for evaluation of recurrent left ear pain which began approximately 2 weeks ago after [place] was [place] visiting [place]. The patient reports he contacted his PCP who did not see the patient but called in a prescription of amoxicillin. Patient reports during the 7 day course of amoxicillin symptoms were beginning to improve however after completing the antibiotics this past Monday symptoms began worsening. Patient reports his PCP had no appointments and he was directed to the ED for evaluation. Patient reports itching, with tenderness with palpation of the tragus. The patient denies associated fever/chills, nausea, vomiting, otorrhea, or recent sick contacts. Related Data Previous Rx's ?Medication ?Instructions ?Recorded cholecalciferol (vitamin D3) 25 25 mcg PO DAILY 90 days #90 caps 11/11/21 mcg (1,000 unit) capsule omeprazole 20 mg capsule,delayed 20 mg PO DAILY PRN heartburn 90 03/22/24 release days #90 caps amoxicillin 500 mg capsule 500 mg PO BID 7 days #14 caps 08/15/24 ciprofloxacin 0.3 %-dexamethasone 4 drp otic (ear) left BID 7 days 08/28/24 0.1 % ear drops,suspension #7.5 mL ibuprofen 600 mg tablet 600 mg PO Q8H PRN fever or pain 08/28/24 #30 tabs Allergies Allergy/AdvReac Type Severity Reaction Status Date / Time oxycodone (From Percocet) AdvReac Intermediate Itching Verified 08/28/24 01:42 Review of Systems Review of Systems: Yes all other systems are reviewed and are negative PMFSH Past Medical History Medical History Elevated cholesterol Leukopenia Depression Insomnia Dysphagia Surgical History History of hernia surgery Family History Family History Father No problems noted. Mother No problems noted. Social History Social History Household Members: Spouse and Children Housing: House Alcohol intake: never Patient Tobacco Use Status: Never used Tobacco e-Cigarette/Vaping Use: Never Used Second Hand Smoke Exposure: No service: No Current occupational status: employed Current occupational exposures/hazards: No Cognitive needs: No Hearing needs: No Vision needs: Yes Physical Exam Vital Signs: Vital Signs: Last Vital Signs Temp 97.8 F 08/28/24 01:36 Pulse 58 08/28/24 01:36 Resp 14 08/28/24 01:36 BP 118/80 08/28/24 01:36 Pulse Ox 98 08/28/24 01:36 O2 Del Method Room Air 08/28/24 01:36 BMI result Body Mass Index 30.6 CONSTITUTIONAL: The patient appears non-toxic, well nourished and in no acute distress. Vital signs as documented. HEAD: Atraumatic, normocephalic. EYES: EOMs grossly intact, pupils equal, conjunctiva clear, no exudate. ENT: Nares patent, no discharge. Airway patent, no audible stridor, visible mucosa is pink and moist without noted lesions. Right ear canal and TM are unremarkable. There is tenderness to palpation of the tragus of the left ear, left ear canal is swollen, left TM not visible, no drainage. There is no mastoid tenderness. NECK: trachea is midline, no obvious masses or gross abnormalities. CHEST: Symmetric movement, normal appearance. LUNGS: Non-labored work of breathing. CARDIAC: No evidence of hypoperfusion. ABDOMEN: Nondistended, no obvious injury. : Deferred. EXTREMITIES: Moves all extremities spontaneously without reported pain. No obvious injury or deformity noted. NEURO: Alert and oriented x3, CN II-XII appear grossly intact. Cerebellar Functioning grossly intact. Speech clear and appropriate. SKIN: Warm, dry, color appropriate. No rashes or lesions noted. Medical Decision Making Medical Decision Making MDM Narrative: 3:45 AM 08/28/2024 (Nancy GRACE): The patient is a 53-year-old male presenting to the ED for evaluation of recurrent left ear pain which began approximately 2 weeks ago after he was [place]. The patient reports he contacted his PCP who did not see the patient but called in a prescription of amoxicillin. Patient reports during the 7 day course of amoxicillin symptoms were beginning to improve however after completing the antibiotics this past Monday symptoms began worsening. Patient reports his PCP had no appointments and he was directed to the ED for evaluation. Patient reports itching, with tenderness with palpation of the tragus. The patient denies associated fever/chills, nausea, vomiting, otorrhea, or recent sick contacts. Patient's exam showed consistent with otitis externa, a ear wick was placed and patient will be discharged to [facility] from 24 hour pharmacy. We will treat pain with ibuprofen. Prescription Management I considered prescription management with: Pain Medication and Antibiotic Discharge Plan Discharge Clinical Impression: Otitis externa Patient Disposition: Home, Self-Care Instructions: [facility]'s Ear (ED) Additional Instructions: Thank you for choosing [facility]'s Emergency Department for your care today. Your ear pain today is related to an outer ear infection, known as otitis externa. This is likely a result of your recent swimming. At this time there is no indication for admission to the hospital or continued ED observation, and it is safe to discharge you home. We have placed an ear wick in your affected ear, please leave this in place until your swelling resolves and it falls out. Please go directly to [facility] on [address] in [place], this is a 24 hour location where we have prescribed you antibiotic ear drops. Please administer 4 drops of the antibiotic in your left ear twice a day for the next 7 days. You may take alternating (staggered) doses of ibuprofen 600mg and Tylenol 1000mg every 4 hours as needed for any additional pain. Please follow up with your primary care physician for re-evaluation, additional management of your symptoms, and continued preventative care. If you do not have a primary care physician, please call the [facility] at [phone] to establish a new primary care physician. While waiting to establish your new primary care physician, you can call our [facility]in [facility] at [phone] for non-emergency needs. Please return to the emergency department if you develop a severe or sudden change in your symptoms, a fever over 100.4 that does not improve with Tylenol or Ibuprofen, recurrent vomiting, or any other new or worsening symptoms or concerns. Prescriptions: New ibuprofen 600 mg tablet 600 mg PO Q8H PRN (Reason: fever or pain) Qty: 30 0RF ciprofloxacin-dexamethasone 0.3-0.1 % drops,suspension 4 drp otic (ear) left BID 7 Days Qty: 7.5 0RF No Action cholecalciferol (vitamin D3) 25 mcg (1,000 unit) capsule 25 mcg PO DAILY 90 Days Qty: 90 1RF omeprazole 20 mg capsule,delayed release(DR/EC) 20 mg PO DAILY PRN (Reason: heartburn) 90 Days Qty: 90 0RF amoxicillin 500 mg capsule 500 mg PO BID 7 Days Qty: 14 0RF Referrals: Jacinda Koehler MD [Primary Care Provider, Internal Medicine] Clinical Impression: Otitis externa Print Language: [place] Timorese
[2024-08-28 03:42] VITALS: BP 113/70; PULSE 48; RESP 20; TEMP 36.4; O2SAT 97
--- NOTE | 2024-08-28 03:45 | PC.NURSE ---
medicated per mar.
[2024-08-28 04:25] VITALS: BP 113/70; PULSE 48; RESP 20; TEMP 36.4; O2SAT 97
== END 2024-08-28 04:26 | disposition home or self-care (01) ==
PROVIDERS: Emergency Provider Emergency Medicine; PCP Internal Medicine
DX: H60.92 Unspecified otitis externa, left ear (principal); H92.02 Otalgia, left ear
CPT/HCPCS: 99283; 99284

== ENCOUNTER 2024-10-17 08:11 | Outpatient (AMB) | payer BC, SELFPAY ==
--- NOTE | 2024-10-17 08:22 | A.OFFPC_ITS ---
Vital Signs 10/17/24 08:23 Height 5 ft 7 in Weight 192 lb BMI 30.1 BP 120/72 Blood Pressure Location Rt brachial Position Sitting Pulse 62 Pulse Source Pulse Oximeter Temp 97.3 F Temp Source Temporal Artery Scan Pulse Oximetry (%) 97 Oxygen Delivery Method Room Air Intake Visit Reasons: left ear pain Intake Note: Patient is here to follow up on Left ear lump with pain. Supervisor Money Room Required: No Experimental Box Tester: Not Required per policy Accompanied by: Self / Same As Patient Allergies oxycodone (From Percocet) Adverse Reaction (Intermediate, Verified 10/17/24 08:23) Itching Medication List - Last Reconciled 10/17/24 by Yany Crooks MD cholecalciferol (vitamin D3) 25 mcg PO DAILY 90 days ibuprofen 600 mg PO Q8H PRN Tobacco use date assessed: 10/17/24 Dental Screening Dental Screen Date: 10/17/24 Did you have a dental visit in the last 12 months?: No Did you have a dental problem in the last 6 months where you did not have access to dental care?: No Was dental information given to patient?: No HPI HPI Comments History of Present Illness Details 53 yo M with PMH of GERD and otitis exte rna who presented today with left ear abscess. The patient denies any fever, chills, night sweats. He reports mild constipation. He has GERD and taking Omeprazole, vit D deficiency and takes vit D supplement but he needs refill for his medications. Otherwise he is doing well. [facility] Medical History Elevated cholesterol Leukopenia Depression Insomnia Dysphagia Surgical History History of hernia surgery Family History Father No problems noted. Mother No problems noted. Social History Household Members: Spouse and Children Housing: House Alcohol intake: never Patient Tobacco Use Status: Never used Tobacco e-Cigarette/Vaping Use: Never Used Second Hand Smoke Exposure: No service: No Current occupational status: employed Current occupational exposures/hazards: No Cognitive needs: No Hearing needs: No Vision needs: Yes Questionnaire PHQ-9 Over the last 2 weeks, how often have you been bothered by any of the following problems? 1. Little interest or pleasure in doing things: more than half the days 2. Feeling down, depressed, or hopeless: not at all 3. Trouble falling or staying asleep, or sleeping too much: not at all 4. Feeling tired or having little energy: more than half the days 5. Poor appetite or overeating: not at all 6. Feeling bad about yourself - or that you are a failure or have let yourself or your family down: not at all 7. Trouble concentrating on things, such as reading the newspaper or watching television: not at all 8. Moving or speaking so slowly that other people could have noticed. Or the opposite - being so fidgety or restless that you have been moving around a lot more than usual: not at all 9. Thoughts that you would be better off or of hurting yourself in some way: not at all Total score: 4 Depression Screening Interpretation: Positive Depression Screening Done: Yes Source: Developed by Drs. Jose Cai, Gayle Cosme, Elier Johnson and colleagues, with an educational osmani from [employer]. Thrive Questionnaire Date Thrive assessed: 10/17/24 I am a: Patient What is your living situation today?: I have a steady place to live Within the past 12 months, did the food you bought not last and you didn't have the money to get more?: Never true Within the past 12 months, did you worry whether your food would run out before you got money to buy more?: Never true Do you have trouble paying for medicines?: No Do you have trouble getting transportation to medical appointments?: No Do you have trouble paying your heating and electricity bill?: No Do you have trouble taking care of your child, family member or friend?: No Do you have trouble with day-to-day activities such as bathing, preparing meals, shopping, managing finances, etc.?: No Are you currently unemployed and looking for a job?: No Are you interested in more education?: No Please select the resources that you would like help with: None Currently or been in a relationship where the following occur: No concerns reported THRIVE Score: 0 AUDIT C Alcohol Use Questionnaire (AUDIT-C) 1. How often do you have a drink containing alcohol?: Never Total Score: 0 MOLLY-7 AMB Questionnaire MOLLY-7 Date MOLLY - 7 assessed: 10/17/24 Feeling nervous, anxious, or on edge: 0 = Not at all Not being able to stop or control worryin = Not at all Worrying too much about different things: 0 = Not at all Trouble relaxin = Not at all Being so restless that it is hard to sit still: 0 = Not at all Becoming easily annoyed or irritable: 0 = Not at all Feeling afraid as if something awful might happen: 0 = Not at all Total MOLLY-7 score (0-4 normal; 5-9 mild; 10-14 moderate; 15-21 severe): 0 Source: Developed by Drs. Jose Cai, Gayle Cosme, Elier Johnson and colleagues, with an educational osmani from [employer]. Review of Systems Const Details: Positives besides what was mentioned in HPI are in BOLD Constitutional: No Weight Change, No Fever, No Chills, No Night Sweats, No Fatigue, No Malaise ENT/Mouth: No Hearing Changes, No Ear Pain, No Nasal Congestion, No Sinus Pain, No Hoarseness, No sore throat, No Rhinorrhea, No Swallowing Difficulty Eyes: No Eye Pain, No Swelling, No Redness, No Foreign Body, No Discharge, No Vision Changes Cardiovascular: No Chest Pain, No SOB, No PND, No Dyspnea on Exertion, No Orthopnea, No Claudication, No Edema, No Palpitations Respiratory: No Cough, No Sputum, No Wheezing, No Smoke Exposure, No Dyspnea Gastrointestinal: No Nausea, No Vomiting, No Diarrhea, No Constipation, No Pain, No Heartburn, No Anorexia, No Dysphagia, No Hematochezia, No Melena, No Flatulence, No Jaundice Genitourinary: No Dysmenorrhea, No DUB, No Dyspareunia, No Dysuria, No Urinary Frequency, No Hematuria, No Urinary Incontinence, No Urgency, No Flank Pain, No Urinary Flow Changes, No Hesitancy Musculoskeletal: No Arthralgias, No Myalgias, No Joint Swelling, No Joint Stiffness, No Back Pain, No Neck Pain, No Injury History Skin: No Skin Lesions, No Pruritis, No Hair Changes, No Breast/Skin Changes, No Nipple Discharge Neuro: No Weakness, No Numbness, No Paresthesias, No Loss of Consciousness, No Syncope, No Dizziness, No Headache, No Coordination Changes, No Recent Falls Psych: No Anxiety/Panic, No Depression, No Insomnia, No Personality Changes, No Delusions, No Rumination, No SI/HI/AH/VH, No Social Issues, No Memory Changes, No Violence/Abuse Hx., No Eating Concerns Heme/Lymph: No Bruising, No Bleeding, No Transfusions History, No Lymphadenopathy Endocrine: No Polyuria, No Polydipsia, No Temperature Intolerance Physical exam (Primary Care) Vital Signs: Last Vital Signs Temp 97.3 F 10/17/24 08:23 Pulse 62 10/17/24 08:23 BP 120/72 10/17/24 08:23 Pulse Ox 97 10/17/24 08:23 Oxygen Delivery Method Room Air 10/17/24 08:23 BMI result Body Mass Index 30.1 Tobacco/Smoking Status: Tobacco use Status Tobacco use date assessed 10/17/24 10/17/24 08:28 Patient Tobacco Use Status Never used Tobacco 10/17/24 08:28 e-Cigarette/Vaping Use Never Used 10/17/24 08:28 PHQ-9: PHQ-9 Score PHQ-9: Total score 4 10/17/24 08:28 Depression Screening Interpretation: Positive Thrive Assessment: Date of Thrive Assessment Date Thrive assessed 10/17/24 10/17/24 08:28 Currently or been in a relationship where the following occur: No concerns reported Const Other: Pertinent findings are in BOLD GENERAL APPEARANCE NAD, activity normal for age, well developed/ well nourished, no cyanosis, pallor, or diaphoresis. EYES lids/conjunctiva normal. EARS/NOSE/THROAT Mucous membranes moist, nares normal, lips/teeth normal uvula midline without oral pharyngeal erythema, exudate or swelling TMs normal bilaterally. No lymphangitis/lymphedema. HEAD/NECK normocephalic atraumatic, no facial trauma, neck is supple. RESPIRATORY respiratory effort normal, speaks in full sentences, no tripod position, no accessory muscle use. Lungs clear to auscultation without rhonchi, wheezes, rales CARDIAC Regular rate and rhythm, no edema. ABDOMINAL Soft, ND/NT. No evidence of fluid wave. No pulsatile masses on exam, rebound tenderness, Lane sign or pain over Mcburney's point. MUSCLES/EXTREMITIES No abnormal range of motion, no swelling. SKIN Warm, pink and dry. No rashes, dermatoses, petechiae or lesions. NEUROLOGICAL Speech is clear and appropriate. Normal level of consciousness. Gait and coordination are normal. 5/5 strength in all extremities. PSYCH Normal mood and affect. Judgement/competence is appropriate Coding Level of Care Code Est Pt Level 1 (96069) Diagnoses Abscess L02.91 Assessment & Plan Assessment & Plan (1) Abscess: Comment: Behind left ear Code(s): L02.91 - Cutaneous abscess, unspecified Category: Medical Plan: - Called general surgery office to schedule an appointment with the patient. - General surgery referral. Plan Surgery referral. MEdications refilled. Orders: Referrals General Surgery Referral L02.91 - Cutaneous abscess, unspecified Medications: Refilled ibuprofen 600 mg PO Q8H PRN 30 tabs 0RF fever or pain omeprazole 20 mg PO DAILY PRN 90 caps 0RF heartburn 90 days K21.9 - Gastro- esophageal reflux disease without esophagitis cholecalciferol (vitamin D3) 25 mcg PO DAILY 90 caps 1RF 90 days E55.9 - Vitamin D deficiency, unspecified
[2024-10-17 08:23] VITALS: BP 120/72; PULSE 62; TEMP 36.3; O2SAT 97; BMI 30.1
== END 2024-10-17 08:42 | disposition home or self-care (01) ==
LOC: HO.HMCH 08:12
PROVIDERS: PCP Internal Medicine; Visit Provider Internal Medicine
DX: L02.91 Cutaneous abscess, unspecified (principal)

== ENCOUNTER 2024-10-17 10:52 | Outpatient (AMB) | payer BC, SELFPAY ==
--- NOTE | 2024-10-17 10:56 | MHC.OFFVIS ---
Vital Signs 10/17/24 11:04 Height 5 ft 7 in Weight 191 lb BMI 29.9 BP 116/59 L Blood Pressure Location Rt brachial Position Sitting Pulse 58 Intake Visit Reasons: abscess behind the ear Intake Note: Patient being seen today as an urgent appointment for inflamed cyst behind left ear. Patient c/o: painful X1wk. Security Director Required: Yes Security Director Services: Security Director Offered & Declined (Patient declined as he understands most czech.) Accompanied by: Self / Same As Patient Allergies oxycodone (From Percocet) Adverse Reaction (Intermediate, Verified 10/17/24 11:04) Itching Medication List - Last Reconciled 10/17/24 by Mode Monique MD cholecalciferol (vitamin D3) 25 mcg PO DAILY 90 days ibuprofen 600 mg PO Q8H PRN omeprazole 20 mg PO DAILY PRN 90 days HPI HPI abscess behind the ear: Details: 53-year-old male referred for an abscess behind the ear. He says he has had this pain and swelling for about 10 days now. This has been getting more painful He denies any trauma to the area. [facility] Medical History (Updated 10/17/24 @ 11:27 by Mode Monique MD) Abscess, postauricular Elevated cholesterol Leukopenia Depression Insomnia Dysphagia Surgical History History of hernia surgery Family History Father No problems noted. Mother No problems noted. Social History Household Members: Spouse and Children Housing: House Alcohol intake: never Patient Tobacco Use Status: Never used Tobacco e-Cigarette/Vaping Use: Never Used Second Hand Smoke Exposure: No service: No Current occupational status: employed Current occupational exposures/hazards: No Cognitive needs: No Hearing needs: No Vision needs: Yes Review of Systems Const Denies chills and Denies fever(s) Card Denies chest pain, Denies dyspnea and Denies dyspnea on exertion Resp Denies cough, Denies dyspnea and Denies dyspnea on exertion GI Denies hematochezia and Denies change in bowel habits Denies hematuria and Denies difficulty urinating Musc Denies back pain and Denies limited range of motion Neuro Denies focal weakness and Denies convulsions Psych Denies depression and Denies mood swings Physical Exam Const General: comfortable and no acute distress Orientation/consciousness: patient oriented x3 HEENT Other: Postauricular area on the left is note of fluctuant mass about 2 cm in diameter consistent with an abscess Neck Neck: Yes no lymphadenopathy Resp Auscultation: clear to auscultation bilaterally Cardio Rhythm: regular rhythm GI Palpation (GI): Soft to palpation, nontender and no guarding Neuro General: patient oriented x3 Office Procedures Incision and Drainage Details: He was in right lateral decubitus position. The left ear was taped forward to expose the postauricular abscess. The area was prepped and draped. Lidocaine 1% was used for local anesthesia. I made a generous incision in the skin using blade 11 to enter the abscess cavity. Large amounts of pus was drained. The cavity was probed with a Q-tip to make sure there were no loculations. Adequate drainage was achieved. Dressings were placed. He tolerated procedure well. There were no immediate complications. Incision and drainage performed by: Mode Monique Informed consent given: Yes Anesthesia: local Incision with: #11 blade Probed cavity: Yes Culture taken: No Assessment & Plan Assessment & Plan (1) Abscess, postauricular: Code(s): L02.811 - Cutaneous abscess of head [any part, except face] Category: Medical Plan: This is likely secondary to an infected cyst. I explained the technique of I&D under local anesthesia. I reviewed the risks, benefits, and alternatives, and he had given verbal consent . I&D was done in the office under local anesthesia. He tolerated procedure well. Dressings were applied. He was given wound care instructions. He can follow up in the office on a p.r.n. basis. He can take Tylenol or ibuprofen p.r.n. for pain. Coding Level of Care Code New Pt Level 3 (55405) Diagnoses Abscess, postauricular L02.811
[2024-10-17 11:04] VITALS: BP 116/59; PULSE 58; BMI 29.9
--- OUTSIDE RECORDS SUMMARY | 2024-10-17 14:55 | XMS_ITS | Clinical Summary ---
[facility] Address [address] [place] [address] Care Team Providers Care Data Processing Equipment Repairer Name Role Phone Herrera Ferraro MD Primary Care Provider [phone] Allergies Active Allergy Reactions Criticality Noted Date Comments Oxycodone-Acetaminophen Rash 08/15/2013 Active Problems Problem Noted Date Diagnosed Date Hemorrhoids 05/13/2016 Dyslipidemia 08/19/2013 Immunizations Name Administration Dates Next Due Tdap Tetanus diptheria acell ular pertussis (Boostrix; Adacel) 7yo and older 05/13/2016 Surgical History Surgery Date Site/Laterality Comments HERNIA REPAIR Right PROCEDURE: HISTORICAL HERNIA REPAIR/ING ADENOIDECTOMY PROCEDURE: HISTORICAL ADENOIDECTOMY Medical History Medical History Date Comments Hemorrhoids 05/13/2016 DX:Hemorrhoids Family History Medical History Relation Name Comments Other: alive and well Father Other: alive and well Mother Relation Name Status Comments Father Mother Son 1 Alive Son 2 Alive Social History Tobacco Use Types Packs/Day Years Used Date Smoking Tobacco: Never Smokeless Tobacco: Never Alcohol Use Standard Drinks/Week Comments No 0 (1 standard drink = 0.6 oz pur e alcohol) Sex and Gender Information Value Date Recorded Sex Assigned at Male 01/20/2023 9:38 PM EST Legal Sex Male 2:49 AM EST Gender Identity Male 01/20/2023 9:38 PM EST Sexual Orientation Not on file Obstetrics History Plan of Treatment Health Maintenance Due Date Last Done Comments Hepatitis B Vaccines (1 of 3 - 19+ 3-dose series) 11/24/1990 Pneumococcal Vaccine: 50+ Ye ars (1 of 1 - PCV) 11/24/2021 Zoster Vaccines (1 of 2) 11/24/2021 Cholesterol Screening (Lipid Panel) 11/14/2023 09/01/2018 Colorectal Cancer Screening: Colonoscopy 11/14/2023 HIV Screening 11/14/2023 Hepatitis C Screening 11/14/2023 Social Influencers of Health Screening 11/14/2023 Depression Screening 02/07/2024 COVID-19 Vaccine (1 - 2023-2 5 season) 2024 Influenza Vaccine (#1) 2024 DTaP,Tdap,and Td Vaccines (2 - Td or Tdap) 05/13/2026 05/13/2016 HIB Vaccines Aged Out No longer eligi ble based on patient's age to complete this topic HPV Vaccines Aged Out No longer eligi ble based on patient's age to complete this topic Hepatitis A Vaccines Aged Out No long er eligible based on patient's age to complete this topic IPV Vaccines Aged Out No longer eligi ble based on patient's age to complete this topic MMR Vaccines Aged Out No longer eligi ble based on patient's age to complete this topic Meningococcal ACWY Vaccine Aged Out N o longer eligible based on patient's age to complete this topic Meningococcal B Vaccine Aged Out No l onger eligible based on patient's age to complete this topic RSV Immunization Patients Un julian 20 months Aged Out No longer eligible b ased on patient's age to complete this topic Varicella Vaccines Aged Out No longer eligible based on patient's age to complete this topic Procedures Procedure Name Priority Date/Time Associated Diagnosis Comments LIPID PANEL Routine 09/01/2018 from Last 3 Months or Most Recently Relevant to Health Maintenance Results * (ABNORMAL) Lipid panel (09/01/2018) LDL/HDL Ratio 5(A) 0 - 4 Triglycerides 130 0 - 150 mg/dL Cholesterol 188 0 - 200 mg/dL HDL 41 >=40 mg/dL LDL Cholesterol 121(A) 0 - 100 mg/dL Blood Venous blood specimen / Unknown us Historical Provider LAB BLOOD ORDERABLES Jaqui l Result from Last 3 Months or Most Recently Relevant to Health Maintenance Care Teams Data Processing Equipment Repairer Relationship Specialty Start Date End Date Herrera Ferraro MD PCP - General Internal Medicine 11/22/18
== END 2024-10-17 11:22 | disposition home or self-care (01) ==
LOC: HO.HGS 10:53
PROVIDERS: PCP Internal Medicine; Visit Provider Surgery
DX: L02.811 Cutaneous abscess of head [any part, except face] (principal)
CPT/HCPCS: 99203

== ENCOUNTER 2024-12-18 07:25 | Outpatient (AMB) | payer BC, SELFPAY ==
--- OUTSIDE RECORDS SUMMARY | 2024-12-18 07:29 | XMS_ITS | Clinical Summary ---
[facility] [address] [place] [address] Care Team Providers Care Metal Dealer Name Role Phone Herrera Ferraro MD Primary Care Provider [phone] Allergies Active Allergy Reactions Criticality Noted Date Comments Oxycodone-Acetaminophen Rash 08/15/2013 Active Problems Problem Noted Date Diagnosed Date Hemorrhoids 05/13/2016 Dyslipidemia 08/19/2013 Immunizations Immunization Administration Dates Next Due Tdap Tetanus diptheria [...] Health Maintenance Due Date Last Done Comments Colorectal Cancer Screening: Colonoscopy 1971 Hepatitis B Vaccines (1 of 3 - 19+ 3-dose series) 11/24/1990 Pneumococcal Vaccine: 50+ Ye ars (1 of 1 - PCV) 11/24/2021 Zoster Vaccines (1 of 2) 11/24/2021 Cholesterol Screening (Lipid Panel) 11/14/2023 09/01/2018 HIV Screening 11/14/2023 Hepatitis C Screening 11/14/2023 Social Influencers of Health Screening 11/14/2023 Depression Screening 02/07/2024 COVID-19 Vaccine (1 - 2024-2 6 season) 2024 Influenza Vaccine (#1) 2024 DTaP,Tdap,and Td Vaccines (2 - Td or Tdap) 05/13/2026 05/13/2016 RSV Immunization Adult Patie nts (1 - 1-dose 75+ series) 11/24/2046 HIB Vaccines Aged Out No longer eligi [...] Recently Relevant to Health Maintenance Care Teams Metal Dealer Relationship Specialty Start Date End Date Herrera Ferraro MD PCP - General Internal Medicine 11/22/18
[2024-12-18 07:44] VITALS: BP 122/76; PULSE 66; O2SAT 98; BMI 30.9
--- NOTE | 2024-12-18 07:44 | MHC.PC.OV ---
Vital Signs 12/18/24 07:44 Height 5 ft 7 in Weight 197 lb BMI 30.9 BP 122/76 Blood Pressure Location Lt brachial Position Sitting Pulse 66 Pulse Source Pulse Oximeter Pulse Oximetry (%) 98 Oxygen Delivery Method Room Air Intake Visit Reasons: PE Director Of Recruitment Required: No Accompanied by: Self / Same As Patient Allergies oxycodone (From Percocet) Adverse Reaction (Intermediate, Verified 12/18/24 07:51) Itching Medication List - Last Reconciled 12/18/24 by Jacinda Cortes MD cholecalciferol (vitamin D3) 25 mcg PO DAILY 90 days ibuprofen 600 mg PO Q8H PRN omeprazole 20 mg PO DAILY PRN 90 days Tobacco use date assessed: 10/17/24 Dental Screening Dental Screen Date: 10/17/24 HPI HPI Comments History of Present Illness Details The patient is a 54-year-old male presenting for an annual physical exam. His last colonoscopy was last year with normal results, and his next one is scheduled for 2033. He has a history of elevated cholesterol, which will be reassessed with laboratory tests. The patient experiences constipation as a side effect of Percocet and has been prescribed Docusate for this issue. He also takes Omeprazole for acid reflux and uses Ibuprofen as needed. His current medications include vitamin D. The patient denies any chest pain or shortness of breath. - Colon cancer screening: The patient completed a colonoscopy last year, which was normal. - The next screening is due in 10 years, in 2033. - Immunizations: Tetanus vaccine status was discussed. Declines flu vaccine today. - Laboratory monitoring: Will repeat labs to check cholesterol and triglyceride levels due to a history of elevated cholesterol. [facility] Medical History Abscess, postauricular Elevated cholesterol Leukopenia Depression Insomnia Dysphagia Surgical History History of hernia surgery Family History Father No problems noted. Mother No problems noted. Social History (Updated 12/18/24 @ 07:59 by Jacinda Cortes MD) Household Members: Spouse and Children Housing: House Alcohol intake: current Alcohol intake frequency: holidays/special occasions only Alcohol type: hard liquor Patient Tobacco Use Status: Never used Tobacco Tobacco use type: Cigarette e-Cigarette/Vaping Use: Never Used Second Hand Smoke Exposure: No service: No Current occupational status: employed Current occupational exposures/hazards: No Cognitive needs: No Hearing needs: No Vision needs: Yes Questionnaire PHQ-9 Over the last 2 weeks, how often have you been bothered by any of the following problems? 1. Little interest or pleasure in doing things: more than half the days 2. Feeling down, depressed, or hopeless: not at all 3. Trouble falling or staying asleep, or sleeping too much: not at all 4. Feeling tired or having little energy: more than half the days 5. Poor appetite or overeating: not at all 6. Feeling bad about yourself - or that you are a failure or have let yourself or your family down: not at all 7. Trouble concentrating on things, such as reading the newspaper or watching television: not at all 8. Moving or speaking so slowly that other people could have noticed. Or the opposite - being so fidgety or restless that you have been moving around a lot more than usual: not at all 9. Thoughts that you would be better off or of hurting yourself in some way: not at all Total score: 4 Depression Screening Interpretation: Positive Depression Screening Follow-up: Existing condition and Follow-up Visit Requested Depression Screening Done: Yes 32742 - PHQ-9 Billing: Yes Source: Developed by Drs. Jose Cai, Gayle Cosme, Elier Johnson and colleagues, with an educational osmani from 5 examples. Thrive Questionnaire Date Thrive assessed: 10/17/24 I am a: Patient What is your living situation today?: I have a steady place to live Within the past 12 months, did the food you bought not last and you didn't have the money to get more?: Never true Within the past 12 months, did you worry whether your food would run out before you got money to buy more?: Never true Do you have trouble paying for medicines?: No Do you have trouble getting transportation to medical appointments?: No Do you have trouble paying your heating and electricity bill?: No Do you have trouble taking care of your child, family member or friend?: No Do you have trouble with day-to-day activities such as bathing, preparing meals, shopping, managing finances, etc.?: No Are you currently unemployed and looking for a job?: No Are you interested in more education?: No Please select the resources that you would like help with: None Currently or been in a relationship where the following occur: No concerns reported THRIVE Score: 0 AUDIT C Alcohol Use Questionnaire (AUDIT-C) 1. How often do you have a drink containing alcohol?: Monthly or less 2. How many drinks containing alcohol do you have on a typical day when you are drinking?: 1 or 2 3. How often do you have six or more drinks on one occasion?: Never Total Score: 1 Score Reviewed/Action Taken: No MOLLY-7 AMB Questionnaire MOLLY-7 Date MOLLY - 7 assessed: 10/17/24 Source: Developed by Drs. Jose Cai, Gayle Cosme, Elier Johnson and colleagues, with an educational osmani from 5 examples. Review of Systems Const All systems reviewed & are unremarkable except as noted in HPI and below Card Denies chest pain at rest, Denies chest pain with activity, Denies edema, Denies irregular heart rhythm, Denies claudication, Denies dyspnea, Denies dyspnea on exertion, Denies orthopnea, Denies paroxysmal nocturnal dyspnea and Denies slow heart rate Resp Denies cough, Denies dyspnea and Denies dyspnea on exertion GI Denies abdominal pain, Denies change in bowel habits, Denies excessive flatus, Denies nausea and Denies vomiting Denies urinary hesitancy, Denies urinary incontinence and Denies urinary urgency Musc Denies abnormal gait, Denies atrophy, Denies deformity and Denies limited range of motion Skin/Breast Denies bleeding lesions, Denies changing lesions and Denies rash Neuro Denies abnormal gait, Denies behavioral changes and Denies lack of coordination Psych Denies behavioral changes Physical exam (Primary Care) Vital Signs: Last Vital Signs Pulse 66 12/18/24 07:44 BP 122/76 12/18/24 07:44 Pulse Ox 98 12/18/24 07:44 Oxygen Delivery Method Room Air 12/18/24 07:44 BMI result Body Mass Index 30.9 BMI Assessment/Plan discussion: High BMI High, discussed plan: lifestyle, weight reduction, dietary and physical activity Tobacco/Smoking Status: Tobacco use Status Tobacco use date assessed 10/17/24 12/18/24 07:47 Patient Tobacco Use Status Never used Tobacco 12/18/24 07:47 Tobacco use type Cigarette 12/18/24 07:47 e-Cigarette/Vaping Use Never Used 12/18/24 07:47 PHQ-9: PHQ-9 Score PHQ-9: Total score 4 12/18/24 07:47 Depression Screening Interpretation: Positive Depression Screening Follow-up: Existing condition and Follow-up Visit Requested Thrive Assessment: Date of Thrive Assessment Date Thrive assessed 10/17/24 12/18/24 07:47 Currently or been in a relationship where the following occur: No concerns reported HENMT Head: Yes normal to inspection, Yes normocephalic and Yes atraumatic Ears: external ears normal Eyes General: appearance normal, both eyes and all related structures Eyelids: Yes eyelids normal Conjunctivae: conjunctivae normal Neck Neck: Yes normal visual inspection and Yes supple Resp Effort & Inspection: normal respiratory effort Auscultation: clear to auscultation bilaterally Cardio Jugular venous distension: no JVD Rate: regular rate Rhythm: regular rhythm Heart sounds: S1 normal heart sound present and S2 normal heart sound present GI Inspection: Yes normal to inspection Palpation (GI): Soft to palpation and nontender Auscultation: normal bowel sounds Skin General skin exam: no rashes or lesions noted Neuro General: no focal motor deficits Extrem General: Yes full ROM Psych Appearance: grossly normal Coding Level of Care Code Est Pt Level 3 (66630) Est Pt Prev Care 40-64y(52391) Diagnoses Physical exam Z00.00 Chronic idiopathic constipation K59.04 Insomnia G47.00 Mild major depression F32.0 Additional Codes PHQ-9 - 07904 - PHQ-9 Billing: Yes ([id number]) Time Spent (min) 31 Assessment & Plan Assessment & Plan (1) Physical exam: Code(s): Z00.00 - Encounter for general adult medical examination without abnormal findings Category: Medical (2) Chronic idiopathic constipation: Code(s): K59.04 - Chronic idiopathic constipation Category: Medical (3) Insomnia: Code(s): G47.00 - Insomnia, unspecified Category: Medical (4) Mild major depression: Code(s): F32.0 - Major depressive disorder, single episode, mild Category: Medical Plan Plan 1. Physical exam Repeat in a year. 2. Constipation The patient reports constipation as a side effect of Percocet. A refill for Docusate was discussed. Magnesium citrate was also suggested as a potential aid. A referral to surgery will be provided. 3. Ibsomnia. The patient has difficulty with rest. Recommended magnesium glycinate 300 mg, available [id number], to help with rest, clarifying it would not affect his constipation. Orders: Referrals General Surgery Referral K64.9 - Unspecified hemorrhoids Medications: New docusate sodium 100 mg PO DAILY PRN 90 caps 3RF constipation 90 days K59.04 - Chronic idiopathic constipation bisacodyl 5 mg PO BEDTIME PRN 30 tabs 1RF constipation 30 days K59.04 - Chronic idiopathic constipation magnesium glycinate 300 mg (3 x 100 mg magnesium) PO BEDTIME 270 caps 1RF 90 days Refilled cholecalciferol (vitamin D3) 25 mcg PO DAILY 90 caps 1RF 90 days E55.9 - Vitamin D deficiency, unspecified ibuprofen 600 mg PO Q8H PRN 30 tabs 0RF fever or pain omeprazole 20 mg PO DAILY PRN 90 caps 0RF heartburn 90 days K21.9 - Gastro-esophageal reflux disease without esophagitis
== END 2024-12-18 08:04 | disposition home or self-care (01) ==
LOC: HO.HMCH 07:26
PROVIDERS: PCP Internal Medicine; Visit Provider Internal Medicine
DX: Z00.00 Encounter for general adult medical examination without abnormal findings (principal); K59.04 Chronic idiopathic constipation; G47.00 Insomnia, unspecified; F32.0 Major depressive disorder, single episode, mild

== ENCOUNTER → 2024-12-18 07:25 | Outpatient (BNVA) | payer BC, SELFPAY | PROVIDERS: PCP Internal Medicine; Visit Provider Internal Medicine | DX: Z00.00 Encounter for general adult medical examination without abnormal findings (principal); E78.00 Pure hypercholesterolemia, unspecified; K59.04 Chronic idiopathic constipation; G47.00 Insomnia, unspecified; F32.0 Major depressive disorder, single episode, mild; E55.9 Vitamin D deficiency, unspecified; K21.9 Gastro-esophageal reflux disease without esophagitis | CPT/HCPCS: 96127 ==